=== PATIENT | female | born 1945 | race Caucasian/White ===

== ENCOUNTER 2023-08-26 | Emergency (ER) | payer MEDICARE | END 2023-08-26 14:00 | disposition home or self-care (01) | DX: S02.85XA Fracture of orbit, unspecified, initial encounter for closed fracture (principal); S02.40CA Maxillary fracture, right side, initial encounter for closed fracture; S82.001A Unspecified fracture of right patella, initial encounter for closed fracture; S06.0XAA Concussion with loss of consciousness status unknown, initial encounter; S42.201A Unspecified fracture of upper end of right humerus, initial encounter for closed fracture; S02.40EA Zygomatic fracture, right side, initial encounter for closed fracture; S00.11XA Contusion of right eyelid and periocular area, initial encounter; S00.93XA Contusion of unspecified part of head, initial encounter; M27.40 Unspecified cyst of jaw; W01.0XXA Fall on same level from slipping, tripping and stumbling without subsequent striking against object, initial encounter; Y93.01 Activity, walking, marching and hiking ==